=== PATIENT | female | born 1945 | race Caucasian/White ===

== ENCOUNTER 2019-07-31 17:03 | Emergency (ER) | payer MEDICARE ==
[~2019-07-31] VITALS: Ht 160 cm; Wt 91.4 kg
[~2019-07-31 17:03] MED LIST: ALLO100T PO; CITA20TA19 PO; COLC0.6T69 PO; LEVO100T PO; MULT1TAB74 PO; VALS1TAB79 PO
--- NOTE | 2019-07-31 17:59 | NUR ---
Juany DUBON at bedside.
[2019-07-31 18:05] LABS: BASOPHILS # (AUTO) 0.1 X10'3 (0-0.2); BASOPHILS % (AUTO) 0.9 % (0-1); EOSINOPHILS # (AUTO) 0.3 X10'3 (0-0.9); EOSINOPHILS % (AUTO) 2.7 % (0-6); HEMOGLOBIN 13.9 g/dl (12.0-16.0); LYMPHOCYTES # (AUTO) 1.8 X10'3 (1.1-4.8); LYMPHOCYTES % (AUTO) 19.4 % (21-51); MEAN CORPUSCULAR HEMOGLOBIN 33.1 PG (27.0-31.0); MEAN CORPUSCULAR HGB CONC 33.9 g/dL (33.0-36.5); MEAN CORPUSCULAR VOLUME 97.7 FL (78-98); MEAN PLATELET VOLUME 7.7 FL (7.4-10.4); MONOCYTES # (AUTO) 0.7 X10'3 (0-0.9); MONOCYTES % (AUTO) 7.6 % (2-12); NEUTROPHILS # (AUTO) 6.4 X10'3 (1.8-7.7); NEUTROPHILS % (AUTO) 69.4 % (42-75); PLATELET COUNT 266 X10'3 (140-440); RED CELL DISTRIBUTION WIDTH 14.9 % (11.5-14.5); WHITE BLOOD COUNT 9.3 X10'3 (4.5-11.0)
[2019-07-31 18:24] LABS: PARTIAL THROMBOPLASTIN TIME 27 SECONDS (22-32)
[2019-07-31] MEDS ORDERED: labetalol 100mg tablet PO STA (18:24)
[2019-07-31] MEDS ORDERED: cloNIDine 0.1 mg tablet PO ONE (18:30)
[2019-07-31 18:46] LABS: ALANINE AMINOTRANSFERASE 42 U/L (12-78); ALBUMIN 3.9 G/DL (3.4-5.0); ALBUMIN/GLOBULIN RATIO 1.2 (1.1-1.5); ALKALINE PHOSPHATASE 56 IU/L (46-116); ANION GAP 8 (8-16); ASPARTATE AMINO TRANSFERASE 28 U/L (10-37); BILIRUBIN,TOTAL 1.1 MG/DL (0.1-1.0); BLOOD UREA NITROGEN 24 MG/DL (7-18); BUN/CREATININE RATIO 25.8 (6.6-38.0); CALCIUM 9.7 MG/DL (8.5-10.1); CHLORIDE 102 MMOL/L (99-107); CREATININE 0.93 MG/DL (0.40-0.90); GLUCOSE 87 MG/DL (70-104); POTASSIUM 3.3 MMOL/L (3.5-5.1); SODIUM 137 MMOL/L (135-145); TOTAL CARBON DIOXIDE 26.9 MMOL/L (24-32); TOTAL PROTEIN 7.2 G/DL (6.4-8.2); eGFR 59 ML/MIN
[2019-07-31] MEDS ORDERED: potassium chloride 10mEq CAPSULE.SA PO STA (19:40)
[2019-07-31] MEDS ORDERED: potassium Cl 20 mEq SR tablet PO STA (19:46)
[2019-07-31 20:19] VITALS: BP 137/59
== END 2019-07-31 20:24 | disposition home or self-care (01) ==
LOC: ER 17:04
DX: I10 Essential (primary) hypertension (principal); R00.1 Bradycardia, unspecified; M19.90 Unspecified osteoarthritis, unspecified site; Z98.890 Other specified postprocedural states; Z88.2 Allergy status to sulfonamides; Z88.6 Allergy status to analgesic agent; Z79.899 Other long term (current) drug therapy
CPT/HCPCS: 36415; 71045; 80053; 84484; 85025; 85610; 85730; 93005; 99284

== ENCOUNTER 2019-11-04 05:53 | Day surgery (SDC) | payer MEDICARE ==
[2019-11-03 14:21] LABS: BASOPHILS % (AUTO) 0.7 % (0-1); EOSINOPHILS # (AUTO) 0.3 X10'3 (0-0.9); EOSINOPHILS % (AUTO) 4.2 % (0-6); HEMATOCRIT 42.1 % (35.0-45.0); HEMOGLOBIN 14.1 g/dl (12.0-16.0); LYMPHOCYTES # (AUTO) 1.9 X10'3 (1.1-4.8); MEAN CORPUSCULAR HEMOGLOBIN 32.6 PG (27.0-31.0); MEAN CORPUSCULAR HGB CONC 33.5 g/dL (33.0-36.5); MEAN CORPUSCULAR VOLUME 97.2 FL (78-98); MEAN PLATELET VOLUME 8.3 FL (7.4-10.4); MONOCYTES # (AUTO) 0.8 X10'3 (0-0.9); MONOCYTES % (AUTO) 10.7 % (2-12); NEUTROPHILS # (AUTO) 4.4 X10'3 (1.8-7.7); NEUTROPHILS % (AUTO) 58.4 % (42-75); PLATELET COUNT 285 X10'3 (140-440); RED BLOOD COUNT 4.34 X10'6 (4.20-5.60); RED CELL DISTRIBUTION WIDTH 14.5 % (11.5-14.5); WHITE BLOOD COUNT 7.5 X10'3 (4.5-11.0)
[2019-11-03 14:31] LABS: ALBUMIN 4.1 G/DL (3.4-5.0); ANION GAP 6 (8-16); BLOOD UREA NITROGEN 29 MG/DL (7-18); BUN/CREATININE RATIO 31.2 (6.6-38.0); CALCIUM 10.3 MG/DL (8.5-10.1); CHLORIDE 101 MMOL/L (99-107); CREATININE 0.93 MG/DL (0.40-0.90); GLUCOSE 82 MG/DL (70-104); PARTIAL THROMBOPLASTIN TIME 27 SECONDS (22-32); POTASSIUM 3.4 MMOL/L (3.5-5.1); SODIUM 137 MMOL/L (135-145); TOTAL CARBON DIOXIDE 30.4 MMOL/L (24-32); eGFR 59 ML/MIN
[2019-11-04] VITALS (12 sets, daily range): BP systolic 104–168; BP diastolic 38–67
[~2019-11-04] VITALS: Ht 157.5 cm; Wt 85.0 kg
[~2019-11-04 05:53] MED LIST changes: -VALS1TAB79 PO; +VALS1TAB80 PO
[2019-11-04] MEDS ORDERED: cefazolin/dext.iso 2gm/100ml 100 ML IV ONE (06:20)
[2019-11-04] MEDS ORDERED: normal saline 1000ml 1,000 ML IV PRN (06:20)
[2019-11-04] MEDS ORDERED: vitamin b12 PO (06:52)
[2019-11-04] MEDS ORDERED: VITA1TAB20 PO (06:52)
[2019-11-04] MEDS ORDERED: MELA5TAB14 PO (06:52)
[2019-11-04] MEDS ORDERED: ZINC50TA67 PO (06:52)
[2019-11-04] MEDS ORDERED: LOSA100T57 PO (06:52)
[2019-11-04] MEDS ORDERED: UBID1CAP54 PO (06:52)
[2019-11-04] MEDS ORDERED: LEVO100T9 (07:09)
[2019-11-04] MEDS ORDERED: LOSA1TAB39 (07:09)
[2019-11-04] MEDS ORDERED: SUMA100T16 (07:09)
[2019-11-04] MEDS ORDERED: midazolam 2 mg/2 ml injection ONE ×3 (07:20→08:00)
[2019-11-04] MEDS ORDERED: fentaNYL/PF 50MCG/1 ML 2ML syringe ONE (07:21)
[2019-11-04] MEDS ORDERED: LIDOcaine 1% W/epiNEPHrine 1:100,000 20ml vial ONE ×2 (07:21→07:58)
[2019-11-04] MEDS ORDERED: ceFAZolin 1000mg inj ONE (07:21)
[2019-11-04] MEDS ORDERED: HYDROmorphone 1 mg/ml syringe ONE (07:39)
[2019-11-04] MEDS ORDERED: morphine 2 MG/ML inj. syringe ONE ×4 (07:46→08:49)
[2019-11-04] MEDS ORDERED: HYDROcodone/acetaminophen 10/325mg tab PO PRN (09:45)
[2019-11-04] MEDS ORDERED: HYDROcodone/acetaminophen 5mg/325mg tablet PO PRN (09:45)
[2019-11-04] MEDS ORDERED: vancomycin/NS 1 GM ADD-VANTAGE 250 ML X 1 DOSE IV ONE (11:00)
--- NOTE | 2019-11-04 15:10 | NUR ---
PATIENT IV WAS DC'ED CANULA TIP INTACT, PATIENTS VITALS STABLE, PATIENTS BELONGING SENT WITH HER, BRACE PLACED ON HER LEGS. PATIENT WALKER TAKEN OUT, PATIENT TAKEN OUT IN WHEEL CHAIR. DISCHARGE INSTRUCTIONS WERE UNDERSTOOD, PATIENT UNDERSTANDS TO TAKE HER ANTIBIOTICS ORDERED, WEAR THE SLING FOR 3 DAYS, TOLD HER ITS A GOOD IDEA TO SLEEP WITH THE SLING FOR A FEW WEEKS, PATIENT WAS INSTRUCTED TO KEEP THE DRESSING DRY UNTIL JEREMY ARE TAKEN OUT. PATIENT WAS TOLD TO STAY WITH FAMILY OR HAVE SOMEONE STAY, SHE COULD NOT USE HER WALKER WITH THE SLING, AND SHE LIVES ALONE. PATIENT STATED THAT HER NIECE WOULD PROBABLY COME STAY WITH HER. HER FRIEND ABI CAME TO GET HER IN THE CAR, TAKEN HOME IN PRIVATE VEHICLE.
[2019-11-04] MEDS ORDERED: ceFAZolin 1GM/D5W- ADD-VANTAGE 50 ML IV SCH (16:00)
== END 2019-11-04 15:10 | disposition home or self-care (01) ==
LOC: SSTAY O 05:53
PROVIDERS: ATTEND Internal Medicine Cardiovascular Disease
DX: I49.5 Sick sinus syndrome (principal); Z79.01 Long term (current) use of anticoagulants
CPT/HCPCS: 33208; 36415; 71046; 80048; 85025; 85610; 85730; 93005; 99152; 99153; C1785; C1894; C1898; J0690; J1170; J2250; J2270; J3010; J3370; J7030; A4565; A4620; A6449

== ENCOUNTER 2019-11-04 18:36 | Emergency (ER) | payer MEDICARE ==
[~2019-11-04] VITALS: Ht 157.5 cm; Wt 85.0 kg
[~2019-11-04 18:36] MED LIST changes: +LEVO100T9; +LOSA100T57 PO; +LOSA1TAB39; +MELA5TAB14 PO; +SUMA100T16; +UBID1CAP54 PO; +VITA1TAB20 PO; +ZINC50TA67 PO; +vitamin b12 PO
[2019-11-04 18:56] VITALS: BP 147/68
== END 2019-11-04 21:53 | disposition home or self-care (01) ==
LOC: ER 18:37
DX: R53.1 Weakness (principal); I10 Essential (primary) hypertension; M19.90 Unspecified osteoarthritis, unspecified site; Z98.890 Other specified postprocedural states; Z95.0 Presence of cardiac pacemaker; Z88.2 Allergy status to sulfonamides; Z88.8 Allergy status to other drugs, medicaments and biological substances; Z79.899 Other long term (current) drug therapy
CPT/HCPCS: 99284

== ENCOUNTER 2022-05-24 16:17 | Emergency (ER) | payer BC, MEDICARE ==
[~2022-05-24] VITALS: Ht 160 cm; Wt 90.0 kg
[~2022-05-24 16:17] MED LIST changes: -COLC0.6T69 PO; -LEVO100T PO; -LOSA100T57 PO; +MULT-620 PO; -MULT1TAB74 PO; -SUMA100T16; +SUMA100T16 PO; -VALS1TAB80 PO
[2022-05-24 17:12] LABS: BASOPHILS # (AUTO) 0.1 X10'3 (0-0.2); BASOPHILS % (AUTO) 0.9 % (0-1); EOSINOPHILS # (AUTO) 0.2 X10'3 (0-0.9); EOSINOPHILS % (AUTO) 2.1 % (0-6); HEMATOCRIT 43.1 % (35.0-45.0); LYMPHOCYTES # (AUTO) 1.5 X10'3 (1.1-4.8); LYMPHOCYTES % (AUTO) 15.7 % (21-51); MEAN CORPUSCULAR HEMOGLOBIN 32.2 PG (27.0-31.0); MEAN CORPUSCULAR HGB CONC 34.8 g/dL (33.0-36.5); MEAN CORPUSCULAR VOLUME 92.5 FL (78-98); MEAN PLATELET VOLUME 7.2 FL (7.4-10.4); MONOCYTES # (AUTO) 0.7 X10'3 (0-0.9); MONOCYTES % (AUTO) 7.2 % (2-12); NEUTROPHILS # (AUTO) 6.9 X10'3 (1.8-7.7); NEUTROPHILS % (AUTO) 74.1 % (42-75); PLATELET COUNT 274 X10'3 (140-440); RED BLOOD COUNT 4.66 X10'6 (4.20-5.60); RED CELL DISTRIBUTION WIDTH 13.5 % (11.5-14.5); WHITE BLOOD COUNT 9.4 X10'3 (4.5-11.0)
[2022-05-24 17:33] LABS: ALANINE AMINOTRANSFERASE 54 U/L (12-78); ALBUMIN 4.1 G/DL (3.4-5.0); ALBUMIN/GLOBULIN RATIO 1.4 (1.1-1.5); ALKALINE PHOSPHATASE 64 IU/L (46-116); ANION GAP 10 (8-16); ASPARTATE AMINO TRANSFERASE 57 U/L (10-37); BILIRUBIN,TOTAL 1.2 MG/DL (0.1-1.0); BLOOD UREA NITROGEN 18 MG/DL (7-18); BUN/CREATININE RATIO 17.3 (6.6-38.0); CALCIUM 10.3 MG/DL (8.5-10.1); CHLORIDE 100 MMOL/L (99-107); CREATININE 1.04 MG/DL (0.40-0.90); GLUCOSE 114 MG/DL (70-104); SODIUM 141 MMOL/L (135-145); TOTAL CARBON DIOXIDE 31.5 MMOL/L (24-32); TOTAL PROTEIN 7.1 G/DL (6.4-8.2); eGFR 51 ML/MIN
[2022-05-24 17:40] LABS: POTASSIUM 2.7 MMOL/L (3.5-5.1)
[2022-05-24] MEDS ORDERED: POTASSIUM BICARB 20meq eff tab 20 MEQ TABLET.EFF PO ONE (17:40)
[2022-05-24] MEDS ORDERED: potassium Cl 10 mEq/100mL bag IV ONE (17:40)
[2022-05-24] MEDS ORDERED: acetaminophen 325mg tablet PO ONE (19:20)
[2022-05-24] MEDS ORDERED: LIDOcaine 5% patch TP ONE (19:20)
[2022-05-24] MEDS ORDERED: ACET-1025 PO (20:18)
[2022-05-24] MEDS ORDERED: LIDO700A32 TOP (20:18)
[2022-05-24] MEDS ORDERED: MELO-100 PO (20:18)
[2022-05-24 20:49] VITALS: BP 190/100
[2022-05-28] MEDS ORDERED: MELO-100 PO (11:16)
[2022-05-28] MEDS ORDERED: ACET-76 PO (11:16)
[2022-05-28] MEDS ORDERED: LIDO-11 TD (11:16)
[2022-05-28] MEDS ORDERED: VITAMIN B12 PO (11:29)
[2022-05-28] MEDS ORDERED: CYAN500T15 PO (12:55)
[2022-05-30] MEDS ORDERED: LISI1TAB51 PO ×2 (11:06)
[2022-05-30] MEDS ORDERED: NOR5T PO (11:06)
[2022-05-30] MEDS ORDERED: ASPI81TA30 PO (11:06)
[2022-06-02] MEDS ORDERED: LISI1TAB53 PO (12:27)
== END 2022-05-24 20:50 | disposition home or self-care (01) ==
LOC: ER 16:17
DX: M54.6 Pain in thoracic spine (principal); E87.6 Hypokalemia
CPT/HCPCS: 36415; 71045; 80053; 83880; 84484; 85025; 93005; 99285; J3480